=== PATIENT | female | born 1980 | race Caucasian/White ===

== ENCOUNTER 2022-04-04 17:57 | Emergency (ER) | payer OTHER ==
[2022-04-04 18:40] VITALS: BP 119/82; PULSE 75; TEMP 98.8; BMI 31.3
[2022-04-04] MEDS ORDERED: CYCLOBENZAPRINE HCL 5 MG TABLET PO STA (19:34)
[2022-04-04] MEDS ORDERED: KETOROLAC TROMETHAMINE 60 MG/2 ML VIAL IM ONE (19:34)
[2022-04-04] MEDS ORDERED: KETOROLAC TROMETHAMINE 60 MG/2 ML VIAL ONE (19:37)
[2022-04-04] MEDS ORDERED: CYCLOBENZAPRINE HCL 5 MG TABLET ONE (19:37)
== END 2022-04-04 20:00 | disposition home or self-care (01) ==
LOC: FER 17:57
PROC: 3E0233Z Introduction of Anti-inflammatory into Muscle, Percutaneous Approach (ICD-10-PCS; principal; 2022-04-04)
DX: S16.1XXA Strain of muscle, fascia and tendon at neck level, initial encounter (principal); R07.9 Chest pain, unspecified; V89.2XXA Person injured in unspecified motor-vehicle accident, traffic, initial encounter
CPT/HCPCS: 71045-TC-FY; 72050-TC-FY; 99284-25

== ENCOUNTER 2024-02-14 12:46 | Emergency (ER) | payer OTHER ==
[2024-02-14 13:31] VITALS: BP 129/91; PULSE 80; RESP 20; TEMP 98.2; BMI 28.1
[2024-02-14] MEDS: KETOROLAC TROMETHAMINE 15 MG/ML VIAL IVPUSH ONE (13:40)
[2024-02-14] MEDS: SODIUM CHLORIDE 0.9% 500 ML INFUS.BAG IV ONE (13:41)
[2024-02-14 14:02] LABS: HEMATOCRIT 40.5 % (32.4-45.2); HEMOGLOBIN 13.5 G/dL (10.7-15.3); MCH 31.9 pg (25.7-33.7); MCHC 33.4 g/dl (32.0-36.0); MEAN CELL VOLUME 95.6 fl (80-96); PLATELET COUNT 248.8 10^3/uL (134-434); RBC 4.24 10^6/uL (3.60-5.2); RDW 13.3 % (11.6-15.6); WHITE BLOOD COUNT 7.5 10^3/uL (4.0-10.8)
[2024-02-14 14:21] LABS: ALBUMIN 4.4 g/dl (3.4-5.0); BILIRUBIN,TOTAL 0.4 mg/dl (0.2-1); CALCIUM 9.4 mg/dl (8.5-10.1); CREATININE 0.7 mg/dl (0.6-1.3); POTASSIUM 4.1 mmol/L (3.5-5.1); TOT PROT 6.8 g/dl (6.4-8.2)
[2024-02-14 14:59] LABS: PLATELET ESTIMATE ADEQUATE
== END 2024-02-14 16:27 | disposition home or self-care (01) ==
LOC: FER 12:46
PROC: 3E0303Z Introduction of Anti-inflammatory into Peripheral Vein, Open Approach (ICD-10-PCS; principal; 2024-02-14)
DX: N20.0 Calculus of kidney (principal); R10.9 Unspecified abdominal pain
CPT/HCPCS: 36415; 74176-TC; 80053; 81003; 81015; 83690; 84703; 85027; 87086; 99284-25

== ENCOUNTER 2024-02-19 08:54 | Emergency (ER) | payer OTHER ==
[2024-02-19 09:16] VITALS: BP 120/55; PULSE 70; RESP 20; TEMP 97.6; BMI 28.1
[2024-02-19] MEDS ORDERED: KETOROLAC TROMETHAMINE 30 MG/1 ML VIAL ONE (09:24)
[2024-02-19] MEDS: KETOROLAC TROMETHAMINE 15 MG/ML VIAL IM ONE (09:29)
[2024-02-19] MEDS ORDERED: cefTRIAXone SODIUM 1 GM VIAL ONE (10:00)
[2024-02-19 10:03] LABS: EPITHELIAL CELLS 0-5 /hpf
[2024-02-19] MEDS: CEFTRIAXONE 1,000 MG in DEXTROSE 5%-WATER - 50 ML IVPB ONE (10:14)
== END 2024-02-19 10:59 | disposition home or self-care (01) ==
LOC: FER 08:54
PROC: 3E03329 Introduction of Other Anti-infective into Peripheral Vein, Percutaneous Approach (ICD-10-PCS; principal; 2024-02-19)
PROC: 3E0233Z Introduction of Anti-inflammatory into Muscle, Percutaneous Approach (ICD-10-PCS; 2024-02-19)
DX: R10.9 Unspecified abdominal pain (principal); R30.0 Dysuria; R35.0 Frequency of micturition; N12 Tubulo-interstitial nephritis, not specified as acute or chronic
CPT/HCPCS: 81003; 81015; 87086; 99284-25